=== PATIENT | female | born 1975 | race Two or more races ===

== ENCOUNTER 2021-07-09 01:43 | Emergency (ER) | payer OTHER ==
[~2021-07-09] VITALS: Ht 142.2 cm; Wt 40.8 kg
[2021-07-09] MEDS ORDERED: IRON325 MG PO (05:26)
[2021-07-09] MEDS ORDERED: VISTARIL50 MG PO (05:26)
== END 2021-07-09 05:55 | disposition home or self-care (01) ==
LOC: ER 01:43
DX: D50.9 Iron deficiency anemia, unspecified (principal); R00.2 Palpitations; R11.10 Vomiting, unspecified; F41.9 Anxiety disorder, unspecified